=== PATIENT | male | born 1945 | race African-American/Black ===

== ENCOUNTER 2018-06-23 00:37 | Inpatient (IN) | payer MEDICARE, MEDICAID ==
[2018-06-23] VITALS (13 sets, daily range): BP systolic 117–141; BP diastolic 68–98
[~2018-06-23] VITALS: Ht 188 cm; Wt 101.2 kg
[2018-06-23] MEDS ORDERED: NITROGLYCERIN OINT 1GM/INCH UDPKT TD ONE (01:15)
[2018-06-23 01:50] LABS: MEAN CORPUSCULAR HEMOGLOBIN 13.6 pg (28.0-32.0); MEAN CORPUSCULAR VOLUME 50.6 fL (80.0-94.0); MEAN PLATELET VOLUME 9.2 fl (7.4-10.4); RED BLOOD CELL COUNT 3.69 mill/uL (4.7-6.1); RED CELL DISTRIBUTION WIDTH 27.6 % (11.6-14.6)
[2018-06-23 01:57] LABS: HEMATOCRIT. 18.7 % (42.0-52.0)
[2018-06-23 01:58] LABS: CHLORIDE 100 mEq/L (98-107)
[2018-06-23 06:57] LABS: PLATELET 64 x1000/uL (130-400)
[2018-06-23 07:04] LABS: PLATELET ESTIMATE DECREASED
[2018-06-23] MEDS: DEXT 5%/0.9% NACL 1,000 ML IV SCH (09:30)
[2018-06-23] MEDS ORDERED: GUAIFENESIN 200MG/10ML SUGAR FREE UDC PO PRN (09:30)
[2018-06-23] MEDS ORDERED: ONDANSETRON HCL 4MG/2ML INJ IV PRN (09:30)
[2018-06-23] MEDS ORDERED: IPRATROPIUM/ALBUTEROL 0.5-3(2.5)MG/3ML NEB INH PRN (09:30)
[2018-06-23] MEDS ORDERED: NITROGLYCERIN 0.4MG TABLET SL SL PRN (09:30)
[2018-06-23] MEDS ORDERED: TRAMADOL 50MG TABLET PO PRN (09:30)
[2018-06-23] MEDS ORDERED: DOCUSATE SODIUM 100MG CAPSULE PO PRN (09:30)
[2018-06-23] MEDS ORDERED: ACETAMINOPHEN 325MG TABLET PO PRN (09:30)
[2018-06-23] MEDS ORDERED: LORAZEPAM 0.5MG TABLET PO PRN (09:30)
[2018-06-23] MEDS ORDERED: MAGNESIUM/ALUMINUM HYDROXIDE/SIMETHICONE 30ML UDC PO PRN (09:30)
[2018-06-23] MEDS ORDERED: CLONIDINE 0.1MG TABLET PO PRN (09:30)
[2018-06-23] MEDS ORDERED: NA PHOS,M-B/NA PHOS,DI-BA ENEMA 118ML PR PRN (09:30)
[2018-06-23] MEDS ORDERED: PANTOPRAZOLE 80 MG in SODIUM CHLORIDE 0.9% 100 ML IV SCH (10:00)
[2018-06-23] MEDS ORDERED: MVI, ADULT NO.1 10 ML, FOLIC ACID 1 MG, THIAMINE HCL 100 MG in SODIUM CHLORIDE 0.9% 988... IV ONE ×4 (10:00)
[2018-06-23] MEDS: PANTOPRAZOLE SODIUM 40 MG/VIAL IV SCH (11:00)
[2018-06-23 12:07] LABS: ETHANOL BLOOD < 10 mg/dL
[2018-06-23 12:09] LABS: LDL CHOLESTEROL 53 mg/dL (5-100)
[2018-06-23 12:11] LABS: HDL CHOLESTEROL 23 mg/dL (40-59)
[2018-06-23] MEDS: METOPROLOL TARTRATE 25MG TABLET PO SCH ×2 (12:30→21:06)
[2018-06-23 12:48] LABS: INR 1.3; PARTIAL THROMBOPLASTIN TIME 26.2 sec (23.4-31.0); PROTHROMBIN TIME 12.6 sec (9.1-11.1)
[2018-06-23 13:16] LABS: TOTAL IRON BINDING CAPACITY 550 ug/dL (250-450)
[2018-06-23 13:22] LABS: FERRITIN 11 ng/mL (22-322)
[2018-06-23] MEDS ORDERED: DEXTROSE 50% WATER 50ML SYRINGE IV PRN (14:15)
[2018-06-23 15:37] LABS: *AMPHETAMINES SCREEN URINE NEGATIVE (NEGATIVE); *BARBITURATES SCREEN URINE NEGATIVE (NEGATIVE)
[2018-06-23 15:38] LABS: *BENZODIAZEPINES SCREEN URINE NEGATIVE (NEGATIVE); *COCAINE SCREEN URINE NEGATIVE (NEGATIVE); CANNABINOID URINE SCREEN NEGATIVE (NEGATIVE); METHADONE URINE SCREEN NEGATIVE (NEGATIVE); OPIATES URINE SCREEN NEGATIVE (NEGATIVE); PHENCYCLIDINE URINE SCREEN NEGATIVE (NEGATIVE)
[2018-06-23] MEDS: INSULIN LISPRO 100 UNITS/ML SUBCUT SCH ×2 (17:20→21:00)
[2018-06-23] MEDS: BLOOD SUGAR DIAGNOSTIC STRIP TEST SCH ×2 (17:45→21:06)
[2018-06-23 18:42] LABS: HEMATOCRIT 20.7 % (42.0-52.0); HEMOGLOBIN 5.6 g/dL (14.0-18.0)
[2018-06-23] MEDS ORDERED: ZOLPIDEM TARTRATE 5MG TABLET PO PRN (21:00)
[2018-06-24] VITALS (42 sets, daily range): BP systolic 99–190; BP diastolic 66–113
[2018-06-24] MEDS: PANTOPRAZOLE SODIUM 40 MG/VIAL IV SCH (08:18)
[2018-06-24] MEDS: METOPROLOL TARTRATE 25MG TABLET PO SCH ×2 (08:18→21:00)
[2018-06-24 09:33] LABS: HEMATOCRIT. 26.8 % (42.0-52.0); HEMOGLOBIN. 7.5 g/dL (14.0-18.0); MEAN CORPUSCULAR HEMOGLOBIN 17.3 pg (28.0-32.0); MEAN CORPUSCULAR VOLUME 61.8 fL (80.0-94.0); RED BLOOD CELL COUNT 4.33 mill/uL (4.7-6.1); RED CELL DISTRIBUTION WIDTH 39.9 % (11.6-14.6)
[2018-06-24] MEDS ORDERED: EPHEDRINE SULFATE 50MG/ML VIAL IM ONE (10:01)
[2018-06-24] MEDS ORDERED: EPHEDRINE SULFATE 50MG/ML VIAL IV ONE (10:01)
[2018-06-24] MEDS ORDERED: EPINEPHRINE 0.1MG/ML (1:10,000) 10ML SYR ONE (10:04)
[2018-06-24] MEDS ORDERED: EPHEDRINE SULFATE 50MG/ML VIAL ONE (10:05)
[2018-06-24] MEDS ORDERED: PROPOFOL 200MG/20ML VIAL IV ONE (10:08)
[2018-06-24] MEDS ORDERED: NOREPINEPHRINE 4MG/250ML PMX 250 ML IV ONE (11:15)
[2018-06-24 11:27] LABS: CHLORIDE 105 mEq/L (98-107)
[2018-06-24 11:27] LABS: BG BASE EXCESS -7.2 mmol/L (-2.0-2.0); BG CARBOXYHEMOGLOBIN 1.7 % (0.5-1.5); BG DEOXYHEMOGLOBIN 0.4 % (0.0-5.0); BG FRACTION INSPIRED OXYGEN 100; BG HCO3 ACT 18.9 mmol/L (22.0-26.0); BG METHEMOGLOBIN 0.5 % (0.0-1.5); BG OXYGEN SATURATION 99.6 % (92.0-98.5); BG OXYHEMOGLOBIN 97.4 % (94.0-97.0); BG PCO2 40.2 mmHg (35.0-45.0); BG PH 7.289 (7.350-7.450); BG PO2 280.4 mmHg (75.0-100.0); BG SAMPLE SITE RIGHT RADIAL; BG TIDAL VOLUME(mL) 500 mL; BG TOTAL HEMOGLOBIN 7.6 g/dL (12.0-18.0); BG VENT MODE VENT - A/C; BG VENT RATE 10 set
[2018-06-24] MEDS ORDERED: PHENYLEPHRINE 10 MG in DEXT 5% WATER 249 ML IV PRN (11:30)
[2018-06-24] MEDS ORDERED: NOREPINEPHRINE 4 MG in DEXT 5% WATER 246 ML IV PRN (11:30)
[2018-06-24] MEDS ORDERED: BACTERIOSTATIC SODIUM CHLORIDE 0.9% 30ML VIAL IJ ONE (12:00)
[2018-06-24] MEDS ORDERED: SIMETHICONE 40 MG/0.6 ML 30ML ONE (12:00)
[2018-06-24] MEDS: PROPOFOL 10MG/ML 100ML 100 ML IV PRN ×2 (12:26→17:17)
[2018-06-24 12:27] LABS: PLATELET ESTIMATE MARKEDLY DECREASED
[2018-06-24 12:30] LABS: MEAN PLATELET VOLUME 10.2 fl (7.4-10.4); PLATELET 36 x1000/uL (130-400)
[2018-06-24] MEDS: DEXT 5%/0.9% NACL 1,000 ML IV SCH ×3 (13:31→23:02)
[2018-06-24] MEDS: IPRATROPIUM/ALBUTEROL 0.5-3(2.5)MG/3ML NEB HHN SCH ×2 (14:30→20:35)
[2018-06-24 19:12] LABS: HEMATOCRIT 27.7 % (42.0-52.0); HEMOGLOBIN 8.5 g/dL (14.0-18.0); MEAN CORPUSCULAR HEMOGLOBIN 19.7 pg (28.0-32.0); MEAN CORPUSCULAR VOLUME 64.3 fL (80.0-94.0); RED CELL DISTRIBUTION WIDTH 40.9 % (11.6-14.6)
[2018-06-24 19:15] LABS: PLATELET 42 x1000/uL (130-400)
[2018-06-24 19:17] LABS: INR 1.3; PARTIAL THROMBOPLASTIN TIME 25.2 sec (23.4-31.0)
[2018-06-24 21:32] LABS: VITAMIN B12 SERUM 531 pg/mL (211-911)
[2018-06-24 21:34] LABS: FOLIC ACID (FOLATE) SERUM > 20.00 ng/mL (>5.38)
[2018-06-25] VITALS (44 sets, daily range): BP systolic 93–145; BP diastolic 48–104
[2018-06-25 01:28] LABS: HEMATOCRIT 31.4 % (42.0-52.0); HEMOGLOBIN 9.3 g/dL (14.0-18.0)
[2018-06-25] MEDS: IPRATROPIUM/ALBUTEROL 0.5-3(2.5)MG/3ML NEB HHN SCH ×4 (02:15→20:24)
[2018-06-25 06:38] LABS: HEMOGLOBIN. 9.1 g/dL (14.0-18.0); MEAN CORPUSCULAR HEMOGLOBIN 19.1 pg (28.0-32.0); MEAN CORPUSCULAR VOLUME 67.1 fL (80.0-94.0); MEAN PLATELET VOLUME 8.8 fl (7.4-10.4); RED BLOOD CELL COUNT 4.77 mill/uL (4.7-6.1); RED CELL DISTRIBUTION WIDTH 41.8 % (11.6-14.6)
[2018-06-25 07:44] LABS: PLATELET 38 x1000/uL (130-400)
[2018-06-25] MEDS: PANTOPRAZOLE SODIUM 40 MG/VIAL IV SCH (08:14)
[2018-06-25] MEDS: METOPROLOL TARTRATE 25MG TABLET PO SCH ×2 (08:14→21:00)
[2018-06-25 08:16] LABS: BG BASE EXCESS -7.2 mmol/L (-2.0-2.0); BG CARBOXYHEMOGLOBIN 0.4 % (0.5-1.5); BG FRACTION INSPIRED OXYGEN 60; BG HCO3 ACT 16.4 mmol/L (22.0-26.0); BG METHEMOGLOBIN 0.2 % (0.0-1.5); BG OXYHEMOGLOBIN 98.4 % (94.0-97.0); BG PCO2 26.6 mmHg (35.0-45.0); BG PH 7.407 (7.350-7.450); BG PO2 197.6 mmHg (75.0-100.0); BG SAMPLE SITE RIGHT RADIAL; BG TIDAL VOLUME(mL) 500 mL; BG TOTAL HEMOGLOBIN 9.3 g/dL (12.0-18.0); BG VENT MODE VENT - A/C; BG VENT RATE 12 set
[2018-06-25] MEDS: DEXT 5%/0.9% NACL 1,000 ML IV SCH ×2 (08:16→22:05)
[2018-06-25 09:03] LABS: NUCLEATED RED BLOOD CELLS 1 /100 WBC
[2018-06-25 09:04] LABS: PLATELET ESTIMATE MARKEDLY DECREASED
[2018-06-25] MEDS ORDERED: DEXTROSE 50% WATER 50ML SYRINGE IV PRN (10:30)
[2018-06-25] MEDS ORDERED: LORAZEPAM 2MG/ML CPJ IV PRN (10:45)
[2018-06-25] MEDS: BLOOD SUGAR DIAGNOSTIC STRIP TEST SCH ×2 (11:18→17:47)
[2018-06-25] MEDS: INSULIN LISPRO 100 UNITS/ML SUBCUT SCH ×2 (11:18→17:47)
[2018-06-25] MEDS: FOLIC ACID 1 MG, THIAMINE HCL 100 MG, MVI, ADULT NO.1 10 ML in DEXTROSE 5% WATER 1,000 ML IV SCH ×4 (11:53)
[2018-06-25] MEDS: LEVETIRACETAM 500 MG in SODIUM CHLORIDE 0.9% 100 ML IV SCH ×2 (11:53→21:50)
[2018-06-25] MEDS: PROPOFOL 10MG/ML 100ML 100 ML IV PRN ×2 (15:40→22:14)
[2018-06-26] VITALS (44 sets, daily range): BP systolic 100–139; BP diastolic 58–92
[2018-06-26 01:14] LABS: HEMATOCRIT 30.8 % (42.0-52.0); HEMOGLOBIN 9.2 g/dL (14.0-18.0); MEAN CORPUSCULAR HEMOGLOBIN 19.7 pg (28.0-32.0); MEAN CORPUSCULAR VOLUME 66.2 fL (80.0-94.0); RED BLOOD CELL COUNT 4.65 mill/uL (4.7-6.1); RED CELL DISTRIBUTION WIDTH 42.1 % (11.6-14.6)
[2018-06-26 01:22] LABS: PLATELET 42 x1000/uL (130-400)
[2018-06-26] MEDS: IPRATROPIUM/ALBUTEROL 0.5-3(2.5)MG/3ML NEB HHN SCH ×4 (01:36→20:47)
[2018-06-26] MEDS: INSULIN LISPRO 100 UNITS/ML SUBCUT SCH ×4 (06:00→17:26)
[2018-06-26] MEDS: BLOOD SUGAR DIAGNOSTIC STRIP TEST SCH ×4 (06:11→17:26)
[2018-06-26 07:33] LABS: BG BASE EXCESS -5.6 mmol/L (-2.0-2.0); BG CARBOXYHEMOGLOBIN 0.6 % (0.5-1.5); BG DEOXYHEMOGLOBIN 2.6 % (0.0-5.0); BG HCO3 ACT 18.4 mmol/L (22.0-26.0); BG METHEMOGLOBIN 0.4 % (0.0-1.5); BG OXYGEN SATURATION 97.4 % (92.0-98.5); BG OXYHEMOGLOBIN 96.4 % (94.0-97.0); BG PCO2 30.6 mmHg (35.0-45.0); BG PH 7.397 (7.350-7.450); BG PO2 95.9 mmHg (75.0-100.0); BG SAMPLE SITE RIGHT RADIAL; BG TIDAL VOLUME(mL) 500 mL; BG TOTAL HEMOGLOBIN 9.3 g/dL (12.0-18.0); BG VENT MODE VENT - A/C; BG VENT RATE 12 set
[2018-06-26] MEDS: DEXT 5%/0.9% NACL 1,000 ML IV SCH ×2 (08:10→16:49)
[2018-06-26] MEDS: FOLIC ACID 1 MG, THIAMINE HCL 100 MG, MVI, ADULT NO.1 10 ML in DEXTROSE 5% WATER 1,000 ML IV SCH ×4 (08:10)
[2018-06-26] MEDS: PROPOFOL 10MG/ML 100ML 100 ML IV PRN ×3 (08:11→22:17)
[2018-06-26] MEDS: PANTOPRAZOLE SODIUM 40 MG/VIAL IV SCH (08:11)
[2018-06-26] MEDS: LEVETIRACETAM 500 MG in SODIUM CHLORIDE 0.9% 100 ML IV SCH ×2 (08:21→20:58)
[2018-06-26] MEDS ORDERED: FUROSEMIDE 40MG/4ML VIAL IVP SCH (09:15)
[2018-06-26] MEDS: METRONIDAZOLE 500 MG PREMIX 100 ML IV SCH ×2 (10:57→16:55)
[2018-06-26] MEDS: METOPROLOL TARTRATE 25MG TABLET PO SCH ×2 (10:58→20:25)
[2018-06-27] VITALS (47 sets, daily range): BP systolic 67–138; BP diastolic 31–83
[2018-06-27] MEDS: METRONIDAZOLE 500 MG PREMIX 100 ML IV SCH ×3 (01:57→17:24)
[2018-06-27] MEDS: IPRATROPIUM/ALBUTEROL 0.5-3(2.5)MG/3ML NEB HHN SCH ×4 (02:34→19:57)
[2018-06-27] MEDS: DEXT 5%/0.9% NACL 1,000 ML IV SCH ×2 (05:33→12:34)
[2018-06-27] MEDS: BLOOD SUGAR DIAGNOSTIC STRIP TEST SCH ×4 (05:35→17:01)
[2018-06-27 05:52] LABS: BASOPHILS % 0.5 % (0.0-2.0); EOSINOPHILS % 2.2 % (0.0-5.0); HEMATOCRIT. 28.8 % (42.0-52.0); HEMOGLOBIN. 8.7 g/dL (14.0-18.0); LYMPHOCYTES % 10.9 % (20.0-50.0); MEAN CORPUSCULAR HEMOGLOBIN 19.6 pg (28.0-32.0); MEAN CORPUSCULAR VOLUME 65.2 fL (80.0-94.0); MEAN PLATELET VOLUME 10.1 fl (7.4-10.4); MONOCYTES % 13.4 % (2.0-8.0); RED BLOOD CELL COUNT 4.42 mill/uL (4.7-6.1); RED CELL DISTRIBUTION WIDTH 43.3 % (11.6-14.6)
[2018-06-27] MEDS: INSULIN LISPRO 100 UNITS/ML SUBCUT SCH ×4 (06:00→17:01)
[2018-06-27 06:24] LABS: PHOSPHORUS 2.3 mg/dL (2.5-4.9)
[2018-06-27 06:29] LABS: PLATELET 35 x1000/uL (130-400)
[2018-06-27 08:32] LABS: BG BASE EXCESS -3.4 mmol/L (-2.0-2.0); BG CARBOXYHEMOGLOBIN 0.8 % (0.5-1.5); BG DEOXYHEMOGLOBIN 1.5 % (0.0-5.0); BG FRACTION INSPIRED OXYGEN 40; BG HCO3 ACT 20.7 mmol/L (22.0-26.0); BG METHEMOGLOBIN 0.3 % (0.0-1.5); BG OXYGEN SATURATION 98.5 % (92.0-98.5); BG OXYHEMOGLOBIN 97.4 % (94.0-97.0); BG PCO2 33.1 mmHg (35.0-45.0); BG PH 7.413 (7.350-7.450); BG PO2 123.4 mmHg (75.0-100.0); BG SAMPLE SITE RIGHT RADIAL; BG TIDAL VOLUME(mL) 500 mL; BG VENT MODE VENT - A/C; BG VENT RATE 12 set
[2018-06-27] MEDS: LEVETIRACETAM 500 MG in SODIUM CHLORIDE 0.9% 100 ML IV SCH ×2 (08:43→20:38)
[2018-06-27] MEDS: PANTOPRAZOLE SODIUM 40 MG/VIAL IV SCH (08:43)
[2018-06-27] MEDS: METOPROLOL TARTRATE 25MG TABLET PO SCH ×2 (08:43→20:38)
[2018-06-27] MEDS: PROPOFOL 10MG/ML 100ML 100 ML IV PRN ×3 (08:44→20:53)
[2018-06-27] MEDS: FOLIC ACID 1 MG, THIAMINE HCL 100 MG, MVI, ADULT NO.1 10 ML in DEXTROSE 5% WATER 1,000 ML IV SCH ×4 (09:54)
[2018-06-27 11:45] LABS: T4 FREE 1.1 ng/dL (0.76-1.46)
[2018-06-27] MEDS ORDERED: FUROSEMIDE 40MG/4ML VIAL IVP NR (14:30)
[2018-06-27] MEDS: LORAZEPAM 2MG/ML CPJ IV PRN (17:51)
[2018-06-27 18:14] LABS: VITAMIN B12 SERUM 917 pg/mL (211-911)
[2018-06-27 18:19] LABS: FOLIC ACID (FOLATE) SERUM > 20.00 ng/mL (>5.38)
[2018-06-28] VITALS (43 sets, daily range): BP systolic 90–161; BP diastolic 54–106
[2018-06-28] MEDS: BLOOD SUGAR DIAGNOSTIC STRIP TEST SCH ×3 (00:26→12:00)
[2018-06-28] MEDS: METRONIDAZOLE 500 MG PREMIX 100 ML IV SCH ×3 (00:32→17:47)
[2018-06-28] MEDS: IPRATROPIUM/ALBUTEROL 0.5-3(2.5)MG/3ML NEB HHN SCH ×4 (01:57→20:03)
[2018-06-28] MEDS: PROPOFOL 10MG/ML 100ML 100 ML IV PRN ×4 (02:51→20:36)
[2018-06-28] MEDS: INSULIN LISPRO 100 UNITS/ML SUBCUT SCH ×4 (05:44→17:54)
[2018-06-28] MEDS: DEXT 5%/0.9% NACL 1,000 ML IV SCH ×3 (05:47→20:06)
[2018-06-28 07:39] LABS: CHLORIDE 106 mEq/L (98-107)
[2018-06-28 07:51] LABS: BG BASE EXCESS -1.5 mmol/L (-2.0-2.0); BG CARBOXYHEMOGLOBIN 0.3 % (0.5-1.5); BG DEOXYHEMOGLOBIN 1.6 % (0.0-5.0); BG HCO3 ACT 22.3 mmol/L (22.0-26.0); BG OXYGEN SATURATION 98.4 % (92.0-98.5); BG OXYHEMOGLOBIN 98.1 % (94.0-97.0); BG PH 7.435 (7.350-7.450); BG PO2 116.8 mmHg (75.0-100.0); BG SAMPLE SITE RIGHT RADIAL; BG TIDAL VOLUME(mL) 500 mL; BG TOTAL HEMOGLOBIN 9.9 g/dL (12.0-18.0); BG VENT MODE VENT - A/C; BG VENT RATE 12 set
[2018-06-28 07:59] LABS: EOSINOPHILS % 6.2 % (0.0-5.0); HEMATOCRIT. 29.2 % (42.0-52.0); HEMOGLOBIN. 8.7 g/dL (14.0-18.0); LYMPHOCYTES % 8.1 % (20.0-50.0); MEAN CORPUSCULAR HEMOGLOBIN 19.8 pg (28.0-32.0); MEAN CORPUSCULAR VOLUME 66.2 fL (80.0-94.0); MONOCYTES % 12.3 % (2.0-8.0); NEUTROPHILS % 72.4 % (40.0-76.0); RED BLOOD CELL COUNT 4.41 mill/uL (4.7-6.1); RED CELL DISTRIBUTION WIDTH 42.8 % (11.6-14.6)
[2018-06-28 08:15] LABS: PLATELET 34 x1000/uL (130-400)
[2018-06-28] MEDS ORDERED: FUROSEMIDE 40MG/4ML VIAL IVP SCH (08:15)
[2018-06-28] MEDS: FOLIC ACID 1 MG, THIAMINE HCL 100 MG, MVI, ADULT NO.1 10 ML in DEXTROSE 5% WATER 1,000 ML IV SCH ×4 (09:08)
[2018-06-28] MEDS: LEVETIRACETAM 500 MG in SODIUM CHLORIDE 0.9% 100 ML IV SCH ×2 (09:08→21:21)
[2018-06-28] MEDS: PANTOPRAZOLE SODIUM 40 MG/VIAL IV SCH (09:08)
[2018-06-28] MEDS: METOPROLOL TARTRATE 25MG TABLET PO SCH ×2 (09:10→22:07)
[2018-06-28 09:21] LABS: PLATELET ESTIMATE MARKEDLY DECREASED
[2018-06-28] MEDS ORDERED: KCL 20MEQ/100ML PREMIX 100 ML IV SCH ×2 (09:30→21:00)
[2018-06-28] MEDS ORDERED: LACTULOSE 20G/30ML UDC PO SCH (10:00)
[2018-06-28] MEDS: LACTULOSE 20G/30ML UDC PO SCH ×2 (16:53→20:34)
[2018-06-29] VITALS (51 sets, daily range): BP systolic 100–202; BP diastolic 56–113
[2018-06-29] MEDS: BLOOD SUGAR DIAGNOSTIC STRIP TEST SCH ×4 (00:42→17:28)
[2018-06-29] MEDS: LACTULOSE 20G/30ML UDC PO SCH ×6 (00:46→20:05)
[2018-06-29] MEDS: IPRATROPIUM/ALBUTEROL 0.5-3(2.5)MG/3ML NEB HHN SCH ×4 (02:04→21:02)
[2018-06-29] MEDS: ACETYLCYSTEINE 100MG/ML 10% VIAL 4ML INH SCH ×3 (02:05→14:49)
[2018-06-29] MEDS: METRONIDAZOLE 500 MG PREMIX 100 ML IV SCH ×3 (02:14→17:04)
[2018-06-29] MEDS: PROPOFOL 10MG/ML 100ML 100 ML IV PRN (02:14)
[2018-06-29] MEDS: DEXT 5%/0.9% NACL 1,000 ML IV SCH ×2 (04:57→06:38)
[2018-06-29] MEDS: INSULIN LISPRO 100 UNITS/ML SUBCUT SCH ×4 (06:00→17:28)
[2018-06-29 06:20] LABS: MEAN CORPUSCULAR HEMOGLOBIN 19.1 pg (28.0-32.0); MEAN CORPUSCULAR VOLUME 66.7 fL (80.0-94.0); RED CELL DISTRIBUTION WIDTH 43.8 % (11.6-14.6)
[2018-06-29 06:22] LABS: CHLORIDE 106 mEq/L (98-107)
[2018-06-29 06:36] LABS: HEMOGLOBIN. 10.3 g/dL (14.0-18.0)
[2018-06-29 07:56] LABS: PLATELET ESTIMATE DECREASED
[2018-06-29 07:57] LABS: MEAN PLATELET VOLUME 10.9 fl (7.4-10.4); PLATELET 60 x1000/uL (130-400)
[2018-06-29 08:01] LABS: BG BASE EXCESS 1.3 mmol/L (-2.0-2.0); BG CARBOXYHEMOGLOBIN 0.9 % (0.5-1.5); BG DEOXYHEMOGLOBIN 2.3 % (0.0-5.0); BG FRACTION INSPIRED OXYGEN 40; BG HCO3 ACT 26.6 mmol/L (22.0-26.0); BG METHEMOGLOBIN 0.3 % (0.0-1.5); BG OXYGEN SATURATION 97.7 % (92.0-98.5); BG OXYHEMOGLOBIN 96.5 % (94.0-97.0); BG PCO2 45.1 mmHg (35.0-45.0); BG PH 7.388 (7.350-7.450); BG PO2 105.3 mmHg (75.0-100.0); BG SAMPLE SITE RIGHT RADIAL; BG TIDAL VOLUME(mL) 500 mL; BG TOTAL HEMOGLOBIN 9.5 g/dL (12.0-18.0); BG VENT MODE VENT - A/C; BG VENT RATE 12 set
[2018-06-29] MEDS: LEVETIRACETAM 500 MG in SODIUM CHLORIDE 0.9% 100 ML IV SCH ×2 (09:24→21:21)
[2018-06-29] MEDS: FOLIC ACID 1 MG, THIAMINE HCL 100 MG, MVI, ADULT NO.1 10 ML in DEXTROSE 5% WATER 1,000 ML IV SCH ×4 (09:24)
[2018-06-29] MEDS: METOPROLOL TARTRATE 25MG TABLET PO SCH ×2 (09:24→21:05)
[2018-06-29] MEDS: PANTOPRAZOLE SODIUM 40 MG/VIAL IV SCH (09:24)
[2018-06-29] MEDS ORDERED: LORAZEPAM 2MG/ML CPJ IV PRN (10:00)
[2018-06-29] MEDS: LORAZEPAM 2MG/ML CPJ IV PRN ×2 (13:11→18:51)
[2018-06-29] MEDS: CEFEPIME 1,000 MG in DEXTROSE 5% WATER 50 ML IV SCH (15:00)
[2018-06-29] MEDS: CHLORDIAZEPOXIDE 25MG CAPSULE NG SCH ×2 (15:00→21:05)
[2018-06-30] VITALS (46 sets, daily range): BP systolic 110–156; BP diastolic 56–142
[2018-06-30] MEDS: LACTULOSE 20G/30ML UDC PO SCH ×7 (00:25→23:55)
[2018-06-30] MEDS: BLOOD SUGAR DIAGNOSTIC STRIP TEST SCH ×5 (00:26→23:58)
[2018-06-30] MEDS: INSULIN LISPRO 100 UNITS/ML SUBCUT SCH ×4 (00:26→17:36)
[2018-06-30] MEDS: IPRATROPIUM/ALBUTEROL 0.5-3(2.5)MG/3ML NEB HHN SCH ×4 (01:00→20:20)
[2018-06-30] MEDS: ACETYLCYSTEINE 100MG/ML 10% VIAL 4ML INH SCH ×3 (01:01→15:35)
[2018-06-30] MEDS: DEXT 5%/0.9% NACL 1,000 ML IV SCH ×2 (01:37→21:31)
[2018-06-30] MEDS: METRONIDAZOLE 500 MG PREMIX 100 ML IV SCH ×3 (01:37→19:02)
[2018-06-30] MEDS: CEFEPIME 1,000 MG in DEXTROSE 5% WATER 50 ML IV SCH ×2 (03:03→14:29)
[2018-06-30] MEDS: LORAZEPAM 2MG/ML CPJ IV PRN ×3 (05:35→17:33)
[2018-06-30] MEDS: CHLORDIAZEPOXIDE 25MG CAPSULE NG SCH ×2 (06:25→14:29)
[2018-06-30] MEDS: FOLIC ACID 1 MG, THIAMINE HCL 100 MG, MVI, ADULT NO.1 10 ML in DEXTROSE 5% WATER 1,000 ML IV SCH ×4 (08:29)
[2018-06-30] MEDS: PANTOPRAZOLE SODIUM 40 MG/VIAL IV SCH (08:29)
[2018-06-30] MEDS: METOPROLOL TARTRATE 25MG TABLET PO SCH ×2 (08:29→20:28)
[2018-06-30] MEDS: LEVETIRACETAM 500 MG in SODIUM CHLORIDE 0.9% 100 ML IV SCH ×2 (08:29→21:13)
[2018-06-30 10:11] LABS: BG BASE EXCESS -3.1 mmol/L (-2.0-2.0); BG CARBOXYHEMOGLOBIN 0.8 % (0.5-1.5); BG DEOXYHEMOGLOBIN 2.6 % (0.0-5.0); BG FRACTION INSPIRED OXYGEN 40; BG HCO3 ACT 21.6 mmol/L (22.0-26.0); BG METHEMOGLOBIN 0.3 % (0.0-1.5); BG OXYGEN SATURATION 97.4 % (92.0-98.5); BG OXYHEMOGLOBIN 96.3 % (94.0-97.0); BG PCO2 37.3 mmHg (35.0-45.0); BG PH 7.381 (7.350-7.450); BG PO2 98.3 mmHg (75.0-100.0); BG SAMPLE SITE LEFT RADIAL; BG TIDAL VOLUME(mL) 500 mL; BG TOTAL HEMOGLOBIN 9.2 g/dL (12.0-18.0); BG VENT MODE VENT - SIMV; BG VENT RATE 8 set
[2018-06-30 11:35] LABS: HEMATOCRIT 30.6 % (42.0-52.0); HEMOGLOBIN 8.9 g/dL (14.0-18.0); MEAN CORPUSCULAR HEMOGLOBIN 19.3 pg (28.0-32.0); MEAN CORPUSCULAR VOLUME 66.5 fL (80.0-94.0); PLATELET 91 x1000/uL (130-400)
[2018-06-30 11:44] LABS: CHLORIDE 108 mEq/L (98-107)
[2018-06-30] MEDS ORDERED: POTASSIUM CHLORIDE 20MEQ/PACKET PO NR (13:15)
[2018-07-01] VITALS (43 sets, daily range): BP systolic 94–167; BP diastolic 49–97
[2018-07-01] MEDS: IPRATROPIUM/ALBUTEROL 0.5-3(2.5)MG/3ML NEB HHN SCH ×2 (01:56→08:26)
[2018-07-01] MEDS: ACETYLCYSTEINE 100MG/ML 10% VIAL 4ML INH SCH ×2 (01:56→08:26)
[2018-07-01] MEDS: CEFEPIME 1,000 MG in DEXTROSE 5% WATER 50 ML IV SCH (02:20)
[2018-07-01] MEDS: METRONIDAZOLE 500 MG PREMIX 100 ML IV SCH ×3 (02:20→17:05)
[2018-07-01] MEDS: LACTULOSE 20G/30ML UDC PO SCH ×2 (03:22→08:32)
[2018-07-01] MEDS: LORAZEPAM 2MG/ML CPJ IV PRN ×2 (03:22→11:38)
[2018-07-01] MEDS: BLOOD SUGAR DIAGNOSTIC STRIP TEST SCH (05:07)
[2018-07-01] MEDS: INSULIN LISPRO 100 UNITS/ML SUBCUT SCH ×2 (05:11)
[2018-07-01 05:33] LABS: BASOPHILS % 2.6 % (0.0-2.0); EOSINOPHILS % 3.1 % (0.0-5.0); HEMATOCRIT. 32.6 % (42.0-52.0); HEMOGLOBIN. 9.3 g/dL (14.0-18.0); LYMPHOCYTES % 8.4 % (20.0-50.0); MEAN CORPUSCULAR VOLUME 66.4 fL (80.0-94.0); MONOCYTES % 10.5 % (2.0-8.0); NEUTROPHILS % 75.4 % (40.0-76.0); RED BLOOD CELL COUNT 4.91 mill/uL (4.7-6.1); RED CELL DISTRIBUTION WIDTH 43.6 % (11.6-14.6)
[2018-07-01 05:43] LABS: CHLORIDE 109 mEq/L (98-107)
[2018-07-01 07:20] LABS: BG BASE EXCESS -0.8 mmol/L (-2.0-2.0); BG CARBOXYHEMOGLOBIN 0.7 % (0.5-1.5); BG DEOXYHEMOGLOBIN 1.8 % (0.0-5.0); BG HCO3 ACT 24.2 mmol/L (22.0-26.0); BG METHEMOGLOBIN 0.3 % (0.0-1.5); BG OXYGEN SATURATION 98.2 % (92.0-98.5); BG OXYHEMOGLOBIN 97.2 % (94.0-97.0); BG PCO2 41.5 mmHg (35.0-45.0); BG PH 7.384 (7.350-7.450); BG PO2 117.9 mmHg (75.0-100.0); BG SAMPLE SITE RIGHT RADIAL; BG TIDAL VOLUME(mL) 500 mL; BG VENT MODE VENT - SIMV; BG VENT RATE 8 set
[2018-07-01] MEDS: DEXT 5%/0.9% NACL 1,000 ML IV SCH (07:30)
[2018-07-01] MEDS: FOLIC ACID 1 MG, THIAMINE HCL 100 MG, MVI, ADULT NO.1 10 ML in DEXTROSE 5% WATER 1,000 ML IV SCH ×4 (08:32)
[2018-07-01] MEDS: LEVETIRACETAM 500 MG in SODIUM CHLORIDE 0.9% 100 ML IV SCH (08:32)
[2018-07-01] MEDS: PANTOPRAZOLE SODIUM 40 MG/VIAL IV SCH (08:32)
[2018-07-01] MEDS ORDERED: POTASSIUM CHLORIDE 20MEQ/PACKET PO SCH (09:00)
[2018-07-01] MEDS: METOPROLOL TARTRATE 25MG TABLET PO SCH (09:37)
[2018-07-01 09:42] LABS: PLATELET 119 x1000/uL (130-400)
[2018-07-01 09:43] LABS: PLATELET ESTIMATE SLIGHTLY DECREASED
[2018-07-01] MEDS: MORPHINE SULFATE 100 MG in DEXT 5% WATER 90 ML IV PRN ×2 (12:39→22:54)
[2018-07-02] VITALS: BP 96/48
[2018-07-02 04:00] VITALS: BP 89/48
[2018-07-02 08:00] VITALS: BP 101/56
[2018-07-02] MEDS ORDERED: LORAZEPAM 2MG/ML CPJ IV PRN (11:00)
[2018-07-02 12:00] VITALS: BP 93/51
[2018-07-02 16:00] VITALS: BP 91/41
[2018-07-02 20:00] VITALS: BP 80/41
[2018-07-03] VITALS: BP 76/49
[2018-07-03] MEDS: MORPHINE SULFATE 100 MG in DEXT 5% WATER 90 ML IV PRN (03:00)
[2018-07-03 04:00] VITALS: BP 84/45
[2018-07-03 08:00] VITALS: BP 82/45
[2018-07-03 12:00] VITALS: BP 70/43
== END 2018-07-03 13:35 | disposition expired | DRG 130 ==
LOC: ER 00:37 → 3WST 03:58 → EDBEDREQSVC 04:00 → EDBEDREQ 04:00 → EDBEDREQTM 04:00 → ENRESERV 05:09 → CVICU 06-24 12:21 → 6EST 07-02 00:15
PROVIDERS: ADMIT Internal Medicine; ATTEND Internal Medicine
PROC: 30233N1 Transfusion of Nonautologous Red Blood Cells into Peripheral Vein, Percutaneous Approach (ICD-10-PCS; 2018-06-23)
PROC: 0BH17EZ Insertion of Endotracheal Airway into Trachea, Via Natural or Artificial Opening (ICD-10-PCS; 2018-06-24)
PROC: 30233R1 Transfusion of Nonautologous Platelets into Peripheral Vein, Percutaneous Approach (ICD-10-PCS; 2018-06-24)
PROC: 5A1955Z Respiratory Ventilation, Greater than 96 Consecutive Hours (ICD-10-PCS; 2018-06-24)
PROC: 0DJ08ZZ Inspection of Upper Intestinal Tract, Via Natural or Artificial Opening Endoscopic (ICD-10-PCS; principal; 2018-06-24 10:00)
PROC: 05HY33Z Insertion of Infusion Device into Upper Vein, Percutaneous Approach (ICD-10-PCS; 2018-06-26)
PROC: B54MZZA Ultrasonography of Right Upper Extremity Veins, Guidance (ICD-10-PCS; 2018-06-26)
PROC: 5A12012 Performance of Cardiac Output, Single, Manual (ICD-10-PCS; 2018-06-26)
PROC: 4A00X4Z Measurement of Central Nervous Electrical Activity, External Approach (ICD-10-PCS; 2018-06-27)
DX: J96.01 Acute respiratory failure with hypoxia (principal); N17.0 Acute kidney failure with tubular necrosis; J69.0 Pneumonitis due to inhalation of food and vomit; I21.4 Non-ST elevation (NSTEMI) myocardial infarction; I46.9 Cardiac arrest, cause unspecified; G93.1 Anoxic brain damage, not elsewhere classified; I95.9 Hypotension, unspecified; K92.2 Gastrointestinal hemorrhage, unspecified; D61.818 Other pancytopenia; E46 Unspecified protein-calorie malnutrition; Z66 Do not resuscitate; D62 Acute posthemorrhagic anemia; E88.09 Other disorders of plasma-protein metabolism, not elsewhere classified; E87.1 Hypo-osmolality and hyponatremia; D50.9 Iron deficiency anemia, unspecified; E11.9 Type 2 diabetes mellitus without complications; Z51.5 Encounter for palliative care; F10.20 Alcohol dependence, uncomplicated; F17.210 Nicotine dependence, cigarettes, uncomplicated; F29 Unspecified psychosis not due to a substance or known physiological condition; I11.0 Hypertensive heart disease with heart failure; F14.10 Cocaine abuse, uncomplicated; R00.0 Tachycardia, unspecified; I25.10 Atherosclerotic heart disease of native coronary artery without angina pectoris; I25.2 Old myocardial infarction; I25.5 Ischemic cardiomyopathy; I34.0 Nonrheumatic mitral (valve) insufficiency; I50.42 Chronic combined systolic (congestive) and diastolic (congestive) heart failure; K29.70 Gastritis, unspecified, without bleeding; K31.89 Other diseases of stomach and duodenum; K44.9 Diaphragmatic hernia without obstruction or gangrene; K57.90 Diverticulosis of intestine, part unspecified, without perforation or abscess without bleeding; R26.2 Difficulty in walking, not elsewhere classified; R56.9 Unspecified convulsions; Z78.1 Physical restraint status; Z79.899 Other long term (current) drug therapy; Z95.1 Presence of aortocoronary bypass graft; Z68.28 Body mass index [BMI] 28.0-28.9, adult
CPT/HCPCS: 36415; 36569; 36600; 70551; 71045; 74018; 76700; 76937; 80048; 80061; 80305; 82140; 82375; 82607; 82728; 82746; 82805; 82962; 83036; 83540; 83550; 83735; 83880; 84100; 84439; 84443; 84478; 84481; 84484; 85014; 85018; 85027; 86850; 86900; 86920; 86945; 87070; 93005; 93306; 93970; 94002; 94003; 94640; 99291; C1725; C1769; C9113; G0482; J0692; J1815; J1940; J1953; J2060; J2270; J2704; J3411; J3480; J3490; J7030; J7040; J7042; J7050; J7060; J7070; J7608; J7620; P9016; P9034; A4315